=== PATIENT | male | born 1945 | race Caucasian/White ===

== ENCOUNTER → 2016-04-06 12:16 | Outpatient (CLI) | payer OTHER ==
--- NOTE | 2016-04-20 08:46 | EC ---
PATIENT:BEULAH SMALL DATE OF SERVICE: 04/06/16 SEX: M MEDICAL RECORD: [id number] DATE OF : 45 LOCATION:[facility] AGE OF PATIENT: 70 ADMISSION DATE: 04/06/16 REFERRING PHYSICIAN: INTERPRETING PHYSICIAN: TABATHA HUTCHINS MD ECHOCARDIOGRAM REPORT ECHO CHARGES 4 ECHO COMPLETE CLINICAL DIAGNOSIS: ISCHEMIC HEART DISEASE ECHOCARDIOGRAPHIC MEASUREMENTS (adult normal given) AC root (d.<3.7cm) 3.2 LV Septum d (<1.2 cm> 1.3 Valve Excursion 2.0 LV Septum (systole) 2.1 Left Atria (s.<4.0cm> 4.2 LVPW d(<1.2cm) 1.3 RV (d.<2.3cm) 3.1 LVPW (sytole) 2.0 LV diastole(<5.6CM) 5.2 MV E-F(>70mm/sec) LV systole 2.5 LVOT Diameter 2.0 MV exc.(>10mm) Est.ejection fraction (50-75%) Pericardial Effusion N DOPPLER: LVIT A 73.0 E 106 LA RVSP 39.0 LVOT 138 AOP1/2T Asc. Ao 153 RVOT 57.0 RA PA 81.0 AV Gradient Peak 9.3 AV Mean 4.9 AV Area 2.5 MV Gradient Peak 4.2 MV Mean 1.5 MV Area COMMENTS: Coding Compliance Auditor: Barbara ALBRECHTOE Financial Services Professional:Barbara Hutchins TAPE# PACS DATE OF SERVICE: 04/06/2016 Echocardiogram FINDINGS: 1. Left ventricular chamber size is within normal limits. Left ventricular systolic function is normal. Overall ejection fraction estimated at 55%. 2. Left atrium is enlarged at 4.2 cm. Right atrium and right ventricular chamber sizes are as well mildly dilated. 3. Valvular structures have normal structure and motion. ECHOCARDIOGRAM REPORT [id number] BEULAH SMALL 4. Doppler interrogation reveals mild mitral regurgitation, mild tricuspid regurgitation, no other valvular insufficiency or stenosis. Pulmonary systolic pressure is normal estimated 39 mmHg. 5. No evidence of pericardial effusion or left ventricular thrombus. TRANSINT:[id number] Voice Confirmation ID: [id number] DOCUMENT ID: [id number] TABATHA HUTCHINS MD at [id number] CC: [id number] DICTATION DATE: 04/09/16 1045 OPERATIONS SCHEDULER: 04/09/16 1305 DEP CLI 04/06/16 [facility] [address] [id number]
== END | disposition home or self-care (01) ==
LOC: D.ECHO 09:00
DX: I25.9 Chronic ischemic heart disease, unspecified (principal)